=== PATIENT | female | born 1955 ===

== ENCOUNTER 2021-09-21 05:45 | Day surgery (SDC) | payer OTHER ==
[~2021-09-21] VITALS: Ht 157.5 cm; Wt 88.0 kg
[~2021-09-21 05:45] MED LIST: ATIVAN1 M1 PO; COZAAR50 MG PO; DEPAKOTE ER250 MG PO; JARDIANCE10 MG PO; LANOXIN125 MCG PO; LEVOTHYROXINE25 MCG PO; NORVASC5 MG PO; RISPERDAL1 MG PO; XARELTO20 MG PO; ZOLOFT100 MG PO
[2021-09-21] MEDS ORDERED: ULTRACET PO (10:31)
== END 2021-09-21 14:25 | disposition home or self-care (01) ==
LOC: CIR.AMB 05:45
PROVIDERS: ATTEND Obstetrics & Gynecology Gynecology
DX: N81.6 Rectocele (principal); Z20.822 Contact with and (suspected) exposure to COVID-19; I10 Essential (primary) hypertension; J45.909 Unspecified asthma, uncomplicated; G47.33 Obstructive sleep apnea (adult) (pediatric); Z99.89 Dependence on other enabling machines and devices; Z71.6 Tobacco abuse counseling; F17.210 Nicotine dependence, cigarettes, uncomplicated; E03.9 Hypothyroidism, unspecified; Z79.01 Long term (current) use of anticoagulants